=== PATIENT | female | born 2000 | race Caucasian/White ===

== ENCOUNTER 2023-06-15 14:19 | Outpatient (CLI) | payer BC ==
[~2023-06-15] VITALS: Ht 170.2 cm; Wt 88.6 kg
[2023-06-15] MEDS ORDERED: PRENATAL TABLET PO (14:44)
[2023-06-15 14:45] VITALS: BP 120/70; PULSE 76; TEMP 97.8
[2023-06-15 15:00] VITALS: BP 113/74; PULSE 79
--- NOTE | 2023-06-15 15:06 | NUR ---
Pt arrives ambulatory to unit at 1430, changes into gown, EFM explained and placed. VS taken, assessments done. Pt reports she Drs in [place] with Dr. Lon Kirkpatrick at [place]. She states this is her 2nd , first was miscarriage at 7 weeks. Pt reports cramping since yesterday afternoon around 1500, denies leaking of fluid, vaginal bleeding, and reports good movement. Pt states cramping feels constant, but will tighten across lower abdomen sides, and lower back, rates pain at worse a 6-7/10, also reports nausea with cramping, but denies vomiting. Dr. Garrido on unit and notified 1450 - SVE cl/thick
[2023-06-15 15:29] LABS: COLLECTION METHOD CLEAN CATCH
[2023-06-15 15:30] VITALS: BP 118/68; PULSE 69
[2023-06-15 15:55] LABS: PH 5.5 (5.0-8.5); URINE APPEARANCE Hazy (CLEAR/HAZY); URINE BLOOD Negative (NEGATIVE); URINE COLOR Yellow (YELLOW); URINE GLUCOSE Negative (NEGATIVE); URINE KETONE Negative (NEGATIVE); URINE NITRATE Negative (NEGATIVE); URINE PROTEIN(semi-quant) Negative (NEGATIVE); URINE UROBILINOGEN 0.2 E.U/dL (0.2-1.0)
[2023-06-15 15:56] LABS: URINE RBC None Seen /hpf (0-2); URINE WBC 0-2 /hpf (0-2)
[2023-06-15 15:57] LABS: SQUAMOUS EPITHELIAL 0-2 /hpf (0-10)
[2023-06-15 16:00] VITALS: BP 116/73; PULSE 73
[2023-06-15 16:36] VITALS: BP 119/74; PULSE 71
--- NOTE | 2023-06-15 17:05 | NUR ---
1635 - Repeat SVE unchanged. Pt taken off monitors at this time. 1645 - Per physician order, pt discharged. Discharge instructions given to pt, if pt staying here, return if leaking fluid, vaginal bleeding, decreased movement, or regualr strong contractions every 3-5 minutes. Pt ok to travel back to [facility], if leaving [facility], continue to monitor at home and go to local hospital if any of the above. Call physcians office Saturday to report weekend concerns. Pt verbalizes understaning. Pt and spouse leave ambulatory at 1650.
== END 2023-06-15 16:50 | disposition home or self-care (01) ==
LOC: LDRO 14:19
PROVIDERS: Obstetrics & Gynecology
DX: O26.899 Other specified pregnancy related conditions, unspecified trimester (principal); Z3A.00 Weeks of gestation of pregnancy not specified